=== PATIENT | female | born 1960 | race Two or more races ===

== ENCOUNTER 2022-03-10 09:24 | Emergency (ER) | payer OTHER ==
[~2022-03-10] VITALS: Ht 167.6 cm; Wt 89.0 kg
[2022-03-10] MEDS ORDERED: CYCL-837 PO (14:31)
[2022-03-10] MEDS ORDERED: NAP500T PO (14:31)
[2022-03-10 14:35] VITALS: BP 137/86
== END 2022-03-10 14:54 | disposition home or self-care (01) ==
LOC: ER 09:24
DX: S16.1XXA Strain of muscle, fascia and tendon at neck level, initial encounter (principal); S29.012A Strain of muscle and tendon of back wall of thorax, initial encounter; J45.909 Unspecified asthma, uncomplicated; E11.9 Type 2 diabetes mellitus without complications; I10 Essential (primary) hypertension; V43.52XA Car driver injured in collision with other type car in traffic accident, initial encounter; Y93.89 Activity, other specified; Y92.488 Other paved roadways as the place of occurrence of the external cause; Y99.8 Other external cause status
CPT/HCPCS: 72125; 72128; 82962

== ENCOUNTER 2022-09-27 01:38 | Emergency (ER) | payer OTHER ==
[~2022-09-27] VITALS: Ht 172.7 cm; Wt 92.7 kg
[~2022-09-27 01:38] MED LIST: CYCL-837 PO; NAP500T PO
[2022-09-27 03:00] LABS: Urine Bacteria FEW /hpf (None Seen); Urine Blood Negative /uL (Negative); Urine Specific Gravity 1.013 (1.001-1.035); Urine WBC 6 /hpf (0 - 5)
[2022-09-27 03:02] LABS: Basophils # (auto) 0.1 10 ^3/uL (0-0.2); Basophils % (auto) 1.2 % (0.0-2.0); Eosinophils # (auto) 0.1 10 ^3/uL (0-0.8); Eosinophils % (auto) 0.9 % (0.0-7.0); Hematocrit 40.9 % (36.0-46.0); Hemoglobin 14.2 g/dL (12.2-16.2); Lymphocytes # (auto) 2.5 10 ^3/uL (0.4-5.4); Lymphocytes % (auto) 34.3 % (10.0-50.0); Mean Corpuscular Hgb Conc. 34.7 g/dL (32.0-36.0); Mean Corpuscular Volume 86.4 fL (80.0-100.0); Monocytes # (auto) 0.4 10 ^3/uL (0-1.3); Monocytes % (auto) 6.2 % (0.0-12.0); Neutrophils # (auto) 4.1 10 ^3/uL (1.6-8.6); Neutrophils % (auto) 57.4 % (37.0-80.0); Nucleated Red Blood Cells % 0.3 %; Red Blood Cells 4.73 10^6/uL (4.0-5.20); Red Cell Distribution Width 12.9 % (11.8-14.3); White Blood Cell 7.2 10^3/uL (4.4-10.8)
[2022-09-27 03:43] LABS: Albumin 3.8 g/dL (3.4-5.0); Calcium 10.1 mg/dL (8.5-10.1); Potassium 4.2 mmol/L (3.5-5.1)
[2022-09-27 03:48] LABS: BUN/Creatinine Ratio 19.5 (10.0-20.0); Bilirubin, Total 0.3 mg/dL (0.2-1.0); Total Protein 7.2 g/dL (6.4-8.2)
[2022-09-27] MEDS ORDERED: CEPH500T PO (07:28)
[2022-09-27] MEDS ORDERED: cefTRIAXone W LIDOCAINE 1 GM IM IM ONE ×2 (07:45→08:30)
[2022-09-27 09:44] VITALS: BP 136/74
== END 2022-09-27 09:46 | disposition home or self-care (01) ==
LOC: ER 01:38
DX: N39.0 Urinary tract infection, site not specified (principal); R94.31 Abnormal electrocardiogram [ECG] [EKG]
CPT/HCPCS: 36415; 80053; 81001; 83690; 85025; 93005; 96372; 99284; J0696

== ENCOUNTER 2023-10-15 04:52 | Emergency (ER) | payer OTHER ==
[~2023-10-15] VITALS: Ht 167.6 cm; Wt 91.4 kg
[~2023-10-15 04:52] MED LIST changes: +CEPH500T PO
[2023-10-15 07:31] VITALS: BP 125/63; PULSE 73; RESP 18; TEMP 97.8; O2SAT 96
== END 2023-10-15 07:38 | disposition home or self-care (01) ==
LOC: ER 04:52
DX: S93.602A Unspecified sprain of left foot, initial encounter (principal); X50.1XXA Overexertion from prolonged static or awkward postures, initial encounter; Y93.89 Activity, other specified; Y92.89 Other specified places as the place of occurrence of the external cause; Y99.8 Other external cause status
CPT/HCPCS: 73630